=== PATIENT | female | born 1975 | race Asian ===

== ENCOUNTER 2017-01-24 10:20 | Outpatient (CLI) | payer OTHER ==
--- NOTE | 2017-01-24 12:00 | DIAGNOSTIC IMAGING REPORT ---
PROCEDURE: XR UPPER GI WITH AIR INDICATION: Black stool. Upper abdominal pain. TECHNIQUE: Double contrast study. Fluoroscopy time, 4.1 minutes; 2838.38 mGy. 45 fluoroscopic images (including cinefluoroscopy). COMPARISON: None. FINDINGS: Mild to moderate gastroesophageal reflux. Esophagus is otherwise normal. Stomach and duodenum are normal. No evidence of ulcer. Portions of the proximal small bowel are seen, and are normal. IMPRESSION: 1. Mild to moderate gastroesophageal reflux. 2. Otherwise negative upper GI. No evidence of ulcer. 3. Findings discussed with the patient and called to Juana Perez, JAJA.
== END 2017-01-24 23:00 ==
LOC: XR SRH 10:20
DX: K92.1 Melena (principal); K21.9 Gastro-esophageal reflux disease without esophagitis